=== PATIENT | male | born 1965 | race Caucasian/White ===

== ENCOUNTER → 2019-10-10 | Outpatient (CLI) | payer BC | LOC: GMA MATASK 17:00 | PROVIDERS: ATTEND Family Medicine | DX: E03.9 Hypothyroidism, unspecified (principal) ==

== ENCOUNTER → 2020-02-07 | Outpatient (CLI) | payer BC | LOC: GMA MATASK 11:04 | PROVIDERS: ATTEND Family Medicine | DX: E03.9 Hypothyroidism, unspecified (principal); I10 Essential (primary) hypertension ==

== ENCOUNTER → 2020-08-07 | Outpatient (CLI) | payer BC | LOC: GMA MATASK 10:44 | PROVIDERS: ATTEND Family Medicine | DX: E03.9 Hypothyroidism, unspecified (principal); I10 Essential (primary) hypertension ==

== ENCOUNTER 2020-08-31 10:29 | Emergency (ER) | payer BC ==
[2020-08-31 10:58] VITALS: TEMP 97.6; O2SAT 97
--- NOTE | 2020-08-31 11:39 | RAD ---
EXAM DESCRIPTION: Foot,Right 3 Views CLINICAL HISTORY: GREAT TOE SWELLING COMPARISON: None. TECHNIQUE: 3 views right FINDINGS: A plantar calcaneal spur is observed. No fracturing is detected. No bone erosion or destruction is seen. Minimal degenerative changes observed in the metatarsal phalangeal joint of the first digit. IMPRESSION: Mild degenerative changes are observed. No fracturing is detected. Electronically signed by: Corey Jones MD 08/31/2020 11:38 AM [facility]
--- NOTE | 2020-08-31 12:02 | ED.PDOC ---
History of Present Illness - General Chief Complaint: Lower Extremity Injury Stated Complaint: foot pain Time Seen by Provider: 08/31/20 11:06 Source: patient Exam Limitations: no limitations - History of Present Illness Initial Comments: PATIENT WITH RIGHT GREAT TOE PAIN FOR 3-4 DAYS. NO PRIOR HISTORY OF GOUT. DENIES FEVER, INJURY OR OTHER CAUSE OF SWELLING. Method of Injury: unknown Improving Factors: nothing Worsening Factors: nothing Associated Symptoms: NONE Allergies/Adverse Reactions: Allergies NO KNOWN ALLERGY Allergy (Verified 08/31/20 10:57) Home Medications: Ambulatory Orders Atorvastatin Calcium [Lipitor] 20 mg PO 08/31/20 Colchicine 0.6 mg PO ONCE #3 cap 08/31/20 Indomethacin 50 mg PO TID PRN #10 cap 08/31/20 Levothyroxine Sodium [Synthroid] 125 mcg PO 08/31/20 Lisinopril 40 mg PO DAILY 08/31/20 Review of Systems - Review of Systems Constitutional: Denies: chills, diaphoresis, fever EENTM: Denies: blurred vision, tearing, ear pain, ear discharge Respiratory: Denies: see HPI, cough, orthopnea, short of breath Cardiology: Denies: chest pain, edema, palpitations Gastrointestinal/Abdominal: Denies: abdominal pain Genitourinary: Denies: discharge, frequency Past Medical History (General) - Patient Medical History Hx Hypertension: Yes Hx Thyroid Disease: Yes Surgical History: no surgical history - Vaccination History Hx Tetanus, Diphtheria Vaccination: Yes Hx Influenza Vaccination: Yes Hx Pneumococcal Vaccination: No - Social History Hx Tobacco Use: Yes Hx Chewing Tobacco Use: Yes Hx Alcohol Use: Yes - occ Hx Substance Use: No Hx Substance Use Treatment: No Hx Depression: No Family Medical History - Family History Mother Family History: Unknown Physical Exam - Physical Exam General Appearance: Alert, Comfortable, Obese Cardiovascular/Respiratory: regular rate, rhythm, no M/R/G, normal peripheral pulses Gastrointestinal/Abdominal: no organomegaly, no hernia Leg: normal inspection, non-tender Knee: normal inspection, non-tender, no evidence of injury Ankle: normal inspection, non-tender, no evidence of injury Foot: normal inspection, swelling - GREAT TO Neuro/Tendon: normal sensation, normal motor functions, normal tendon functions, responds to pain Mental Status: alert, oriented x 3, depressed affect Skin: normal color, warm/dry, cyanosis Departure - Departure Clinical Impression: Gout attack Qualifiers: Gout site: toe Gout etiology: idiopathic Laterality: right Qualified Code(s): M10.071 - Idiopathic gout, right ankle and foot Time of Disposition: 12:07 Disposition: Discharge to Home or Self Care Condition: Good Departure Forms: ED Discharge - Pt. Copy, Patient Portal Self Enrollment Instructions: DI for Leg Pain Referrals: Reggie Maria MD [Primary Care Provider] - 1-2 Weeks Prescriptions: Colchicine 0.6 mg PO ONCE #3 cap Indomethacin 50 mg PO TID PRN #10 cap PRN Reason: ACUTE GOUTY ATTACH Home Medications: Ambulatory Orders Atorvastatin Calcium [Lipitor] 20 mg PO 08/31/20 Colchicine 0.6 mg PO ONCE #3 cap 08/31/20 Indomethacin 50 mg PO TID PRN #10 cap 08/31/20 Levothyroxine Sodium [Synthroid] 125 mcg PO 08/31/20 Lisinopril 40 mg PO DAILY 08/31/20
[2020-08-31 12:24] VITALS: BP 140/91
== END 2020-08-31 12:24 | disposition home or self-care (01) ==
LOC: ER 10:29
DX: M10.071 Idiopathic gout, right ankle and foot (principal); I10 Essential (primary) hypertension; E07.9 Disorder of thyroid, unspecified; Z87.891 Personal history of nicotine dependence; Z79.899 Other long term (current) drug therapy

== ENCOUNTER → 2020-10-22 | Outpatient (CLI) | payer BC ==
--- NOTE | 2020-10-22 13:20 | US ---
EXAM DESCRIPTION: Soft Tissue,Abdomen: ULTRASOUND. CLINICAL HISTORY: 55 years Male UNSP ABD HERNIA WITH OBSTRUCTION, WITHOUT GANGRENE COMPARISON: None Available. TECHNIQUE: Transcutaneous scanning: Haas-scale and Doppler modes. FINDINGS: Scanning in the region of the umbilicus. A mostly fatty hernia is visualized in the adipose tissue layer anterior to the abdominal wall. This hernia measures 1.8 x 1.9 x 1.6 cm. The defect is approximately 1.6 x 1.4 cm posterior to the fatty layer. Minimal anechoic fluid in the more anterior and superior aspect of the hernia. No bowel with peristalsis. Not vascular. No fluid or large calcifications in the surrounding adipose tissue. Battery Technician notes no movement in the hernia during the examination. IMPRESSION: Heidi-Umbilical hernia containing mostly fat and minimal fluid. No bowel in the hernia. Electronically signed by: Yovanny Giraldo MD 10/22/2020 1:[address] [facility]
== END ==
LOC: US 09:15
PROVIDERS: ATTEND Family Medicine
DX: K42.9 Umbilical hernia without obstruction or gangrene (principal)

== ENCOUNTER 2020-11-05 05:39 | Day surgery (SDC) | payer BC ==
[2020-11-05] MEDS ORDERED: LACTATED RINGERS 1,000 ML ONE (06:55)
[2020-11-05] MEDS ORDERED: SODIUM CHLORIDE 0.9% 50 ML VIAL ONE (07:00)
[2020-11-05] MEDS ORDERED: PROPOFOL 200 MG/20 ML VIAL IV ONE (07:00)
[2020-11-05] MEDS ORDERED: ceFAZolin SODIUM 1 GM VIAL ONE (07:00)
[2020-11-05] MEDS ORDERED: DEXAMETHASONE INJ 10 MG/ML VIAL ONE (07:00)
[2020-11-05] MEDS ORDERED: LIDOCAINE 1% 10 ML VIAL INJ ONE (07:00)
[2020-11-05] MEDS ORDERED: MAGNESIUM SULFATE INJ 1 GM/2 ML VIAL ONE (07:00)
[2020-11-05] MEDS ORDERED: BUPIVACAINE 0.25% W/EPI 50 ML VIAL INJ ONE (07:28)
[2020-11-05] MEDS ORDERED: DEXMEDETOMIDINE HCL 200 MCG/2 ML INJ IV ONE (13:33)
[2020-11-05] MEDS ORDERED: fentaNYL CITRATE INJ 50 MCG/ML 2 ML AMP ONE (13:33)
[2020-11-05] MEDS ORDERED: MIDAZOLAM INJ 2 MG/2 ML VIAL ONE (13:33)
[2020-11-05] MEDS ORDERED: FAMOTIDINE INJ 10 MG/ML VIAL IV ONE (13:33)
[2020-11-05] MEDS ORDERED: KETAMINE HCL 100 MG/ML VIAL ONE (13:33)
--- NOTE | 2020-11-05 14:28 | OP ---
DATE OF PROCEDURE: 11/05/20 PREOPERATIVE DIAGNOSIS: 1. Incarcerated ventral hernia. POSTOPERATIVE DIAGNOSIS: 1. Incarcerated ventral hernia. PROCEDURE: 1. Repair of incarcerated ventral hernia. SURGEON: Rafael Braun MD. ANESTHESIA: General and local. FINDINGS: There was strangulated incarcerated preperitoneal fat, approximately 2 cm and a little bit more fat below that. The defect itself was under 2 cm. COMPLICATIONS: None. ESTIMATED BLOOD LOSS: Minimal. CONDITION: Stable. PLAN: Discharge. INDICATION: As stated. PROCEDURE: General anesthesia was induced. He was prepped and draped in sterile fashion. A supraumbilical incision was made over the palpable hernia contents. Subcutaneous tissues were taken down. That is when we encountered the incarcerated contents. We dissected tissue right down to the fascia. It was very tight. It was all fat, slightly discolored, incarcerated. It was ligated at its base. There was a little more fatty tissue in that area just inferior that was dissected out and removed as well. The defect itself was smaller than a fingertip. We just closed it with interrupted 0 PDS sutures, 3 in all, which was an excellent closure. We put in a lot of local anesthesia. The wound was closed with interrupted 3-0 Vicryl and running 4-0 Monocryl. Dressing was applied. He was awakened and taken to Recovery to be discharged. #[id number] cc: Reggie Maria MD [facility]
[2020-11-05] MEDS ORDERED: HYDROcodone 5MG/APAP 325MG 1 EA TAB ONE (14:54)
[2020-11-05 15:29] VITALS: BP 118/71; TEMP 96.1; O2SAT 97
== END 2020-11-05 15:27 | disposition home or self-care (01) ==
LOC: AMB 05:39
PROVIDERS: ATTEND Surgery
DX: K43.6 Other and unspecified ventral hernia with obstruction, without gangrene (principal); I10 Essential (primary) hypertension; E78.00 Pure hypercholesterolemia, unspecified; E03.9 Hypothyroidism, unspecified; Z79.899 Other long term (current) drug therapy
CPT/HCPCS: 00832; 36415; 49561; 49568; 80048; 85025; 93005; A4216; J0690; J1100; J2250; J3010; J3475; J3490; J7120